=== PATIENT | male | born 1945 | race Caucasian/White ===

== ENCOUNTER 2019-06-22 08:28 | Outpatient (CLI) | payer MEDICARE, OTHER ==
[~2019-06-22] VITALS: Ht 180.3 cm; Wt 81.8 kg
--- NOTE | ~2019-06-22 | HEMODYNAMI ---
PATIENT:ANDI REYES MEDICAL RECORD: [id number] : 41 LOCATION:[facility] ADMISSION DATE: 06/22/19 Generatedon:06/22/201910:28 Patient name: ANDI REYES Patient #: [id number] SSN: [id number] : 1945 Date of study: 06/22/2019 Page: Of Hemodynamic Procedure Report Patient Data Patient Demographics Procedure consent was obtained First Name: ANDI Gender: Male Last Name: ERIC : 1945 Patient #: [id number] Age: 74 year(s) Race: SSN: [id number] Additional ID: [id number] Contact details [address]: [address] [place] [address] State: [place] City: [place] Zip code: [address] Past Medical History Allergies: No known allergies Admission Admission Data Admission Date: 06/22/2019 Admission Time: 8:28 Arrival Date: 06/22/2019 Arrival Time: 0:00 Admit Source: Other Height (in.): 70.87 BSA: 2.02 (m2) Height (cm.): 180 BMI: 25.31 (kg/m2) Weight (lbs.): 180.78 Weight (kg.): 82 Lab Results Lab Result Date: 06/22/2019 Lab Result Time: 0:00 Biochemistry Name Units Result Min Max BUN mg/dl 15 --(--*-)-- 7 18 Creatinine mg/dl 1.2 --(---*)-- 0.6 1.3 CBC Name Units Result Min Max Hematocrit % 44.9 --(*---)-- 42 54 Hemoglobin g/dl 14.5 --(*---)-- 13.5 17.5 Procedure Procedure Types Cath Procedure Diagnostic Procedure Cardioversion External Procedure Description Procedure Date Procedure Date: 06/22/2019 Procedure Start Time: 10:13 Procedure End Time: 10:23 Procedure Staff Name Function Wellington Kennedy MD Performing Physician Solomon Garcia MD Additional personnel Destiny Hamilton RT Monitor Lidia Saucedo RN Nurse Cheli Martinez RT Scrub Indication Atrial fibrillation Procedure Data Procedure Complications No complications Procedure Medications Medication Administration Route Dosage Oxygen etCO2 Nasal cannula 2 l/min Refer to Anesthesia Notes for Sedation Medications Hemodynamics Rest BSA: 2.02 (m2) O2 Consumption: Estimated: 240.82 (ml/min) O2 Consumption indexed : Estimated:119.22 (ml/min/m) Heart Rate: 82 (bpm) Snapshots Pre Cath Intra NCS Post Cath Vital Signs Time Heart Resp SPO2 etCO2 NIBP (mmHg) Rhythm Pain Sedation Rate (ipm) (%) (mmHg) Status Level (bpm) 10:12:15 89 18 92 19.5 152/101(123) NSR 0 (11) 10(A) , No pain 10:17:27 39 13 94 28.6 83/46(61) NSR 0 (11) 9(A) , No pain 10:21:33 38 13 100 37.6 84/44(69) NSR 0 (11) 9(A) , No pain 10:23:54 46 12 100 32.3 89/70(78) NSR 0 (11) 10(A) , No pain 10:27:07 50 13 100 26.3 102/71(88) NSR 0 (11) 9(A) , No pain Medications Time Medication Route Dose Verified Delivered Reason Notes Effective ness by by 10:10:34 Oxygen etCO2 2 Wellington Murillo used for Nasal l/min [facility] Andrew Saucedo RN procedure cannula MD 10:14:52 Refer to Wellington Murillo Anesthesia [facility] Andrew Saucedo RN Notes for MD Sedation Medications Procedure Log Time Note 9:50:18 Indication : Atrial fibrillation 9:50:48 Time tracking: Regular hours (M-F 7:00 - 5:00) 9:51:01 Procedure Status Cardioversion. 9:51:11 Plan of Care:Hemodynamics will remain stable., Cardiac rhythm will remain stable., Comfort level will be maintained., Respiratory function will remain adequate., Patient/ family verbilizes understanding of procedure., Procedure tolerated without complication., Recovers from procedure without complications.. 9:51:15 Lidia Saucedo RN sent for patient. Start room use. 9:55:29 Arrival Date: 06/22/2019 12:00:00 AM 9:55:36 Patient Height : 70.87 inches 9:55:42 Patient Weight : 180.78 lbs 9:56:25 Lab Result : Hemoglobin 14.5 g/dl 9:56:25 Lab Result : Hematocrit 44.9 % 9:56:25 Lab Result : BUN 15 mg/dl 9:56:25 Lab Result : Creatinine 1.2 mg/dl 9:59:18 H&P Date Dictated: 06/17/2019 Within 30 days and on chart.. 9:59:20 Pre-procedure instructions explained to patient. 9:59:20 Pre-op teaching completed and patient verbalized understanding. 9:59:23 Family unavailable. 9:59:27 Patient NPO since Midnight. 9:59:34 Patient allergic to No known allergies 9:59:38 Admit Source: Other 9:59:45 Alarms reviewed by R. N. 9:59:45 Sharps counted by scrub and verified by R.N. 9:59:48 Lab results completed and on chart. 9:59:56 Stress Test: no; N/A ? 10:01:49 Informed consent obtained and on chart 10:02:04 Patient received from Pre/Post Procedure Room to CCL 1 Alert and oriented. Tansferred to table in Supine position. 10:02:06 Warm blankets applied, and samm hugger turned on for patient comfort. 10:02:06 Correct patient and procedure confirmed by team. 10:02:07 ECG and BP/O2 sat monitors applied to patient. 10:02:08 Full Disclosure recording started 10:03:48 Is the patient allergic to Iodine/contrast media? No. 10:03:49 Was the patient premedicated? No 10:03:52 Is patient on blood thinner?Yes 10:03:54 ----Pre-sedation anethsthesia assessment.---- 10:04:00 Previous problem with sedation/anesthesia? No ? 10:04:01 Snore? Yes 10:04:02 Sleep apnea? Unknown 10:04:04 Deviated septum? No 10:04:05 Opens mouth fully? Yes 10:04:06 Sticks out tongue? Yes 10:04:09 Airway obstruction? No ? 10:04:19 Dentures? No ? 10:05:35 ACC The patient was administered the following blood thiners within the last 24 hours: Xarelto 10:06:41 Quick Combo opened to sterile field. 10:06:44 Quick combo pads placed on patients chest and back. 10:10:34 Oxygen 2 l/min etCO2 Nasal cannula was administered by Lidia Saucedo RN; used for procedure; Verbal order read back and verified. 10:11:25 Solomon Garcia MD present and monitoring patient for TIVA. 10:: --------ALL STOP TIME OUT------ :: Final Timeout: patient, procedure, and site verified with staff and physician. All members of the team are in agreement. 10:11:32 Fire Safety Assessment: A--An alcohol-based skin anteseptic being used preoperatively., C--Open oxygen or nitrous oxide is being used., D--An ESU, laser, or fiber-optic light is being used. 10:11:36 Physical assessment completed. ASA score P 2 - A patient with mild systemic disease as per Wellington Kennedy MD. 10:11:41 Sedation plan: TIVA Medication:Propofol 10:12:00 Solomon Garcia MD Creative Services Manager present for DRISS. 10:12:13 Vital chart was started 10:12:17 Baseline sample Acquired. 10:12:21 Rhythm: atrial fibrillation 10:12:35 Procedure started. 10:12:36 DRISS started. 10:13:46 ------Cardioversion------ 10:14:52 Refer to Anesthesia Notes for Sedation Medications was administered by Lidia Saucedo RN; ; Verbal order read back and verified. 10:16:45 Defibrillator synced and charged to 300 Joules. 10:16:49 Shock delivered. 10:18:28 Patient cardioverted to sinus rhythm . 10:19:28 DRISS completed. 10:20:23 Procedure ended.(Physican Out) 10:22:17 Post procedure rhythm: sinus bradycardia 10:22:20 Post procedure instruction explained to patient.Patient verbalizes understanding. 10:22:20 Patient needs reinforcement of post procedure teaching. 10:22:43 Procedure and supply charges have been captured, reviewed, submitted and are correct. 10:22:46 Procedure Complication : No complications 10:22:49 Vital chart was stopped 10:22:54 Operative report dictated upon procedure completion. 10:22:55 See physician's report for complete and final results. 10:22:57 Report given to Pre/Post Procedure Room. 10:23:00 Patient transfered to Pre/Post Procedure Room with Stretcher. 10:23:03 Procedure ended. 10:23:03 Full Disclosure recording stopped 10:23:07 Vital chart was started 10:23:21 End room use (Document Last) 10:23:36 End room use (Document Last) 10::53 End room use (Document Last) 10:28:41 Vital chart was stopped Device Usage Item Manufacture Quantity Catalog Hospital Part Current Minimal Lot# / Name Number Charge Number Stock Stock Seri al# Code [employer] 1 [id number] Combo Signature Audit [place] Stage Time Signature Unsigned Intra-Procedure 06/22/2019 Destiny Hamilton 10:23:36 AM RT(R) Intra-Procedure 06/22/2019 Lidia Saucedo RN 10:23:53 AM Intra-Procedure 06/22/2019 Wellington Vázquez 10:28:40 AM Andrew [facility] [address] [place] [address]
[2019-06-22 08:04] VITALS: BP 119/71; Ht 180.3 cm; Wt 81.8 kg
[2019-06-22 08:17] LABS: ANION GAP 9.1 mmol/L (8-16); CARBON DIOXIDE 28.1 mmol/L (21.0-32.0); CREATININE - SERUM 1.2 mg/dL (0.6-1.3); POTASSIUM - SERUM 4.2 mmol/L (3.5-5.1)
[2019-06-22 08:23] LABS: BASOPHILS 0.5 % (0-2); EOSINOPHILS 2.7 % (0-7); HEMATOCRIT 44.9 % (42.0-54.0); HEMOGLOBIN 14.5 g/dL (13.5-17.5); IMMATURE GRANULOCYTES 0.6 % (0-5); LYMPHOCYTES 15.6 % (15-50); MCH 30.5 pg (26.0-34.0); MCHC 32.3 g/dL (31.0-37.0); MCV 94.3 fL (80.0-100.0); MEAN PLATELET VOLUME 10.5 fL (7.4-10.4); MONOCYTES 8.2 % (2-11); NEUTROPHILS 72.4 % (40-80); PLATELET COUNT 277 10x3/uL (130-400); RBC 4.76 10x6/uL (4.20-6.10); RDW 14.4 % (11.5-14.5)
[2019-06-22 08:27] LABS: INR 3.13 (0.85-1.17); PROTIME 31.6 SECONDS (11.6-15.0)
[~2019-06-22 08:28] MED LIST: ASPIRIN325 MG PO; ATIVAN1 MG PO; BENADRYL25 MG PO; BYSTOLIC10 MG PO; CIALIS2.5 MG PO; CO Q-10100 MG PO; COZAAR100 MG PO; HYDROCHLOROTHIA25 MG PO; LIPITOR40 MG PO; NORVASC5 MG PO; OMEPRAZOLE40 MG PO; PACERONE200 MG PO; POTASSIUM99 M1 PO; VIAGRA100 MG PO; VITAMIN C500 M1 PO; XARELTO20 MG PO; ZYRTEC10 MG PO
--- NOTE | 2019-06-22 10:30 | NUR ---
PT RECEIVED VIA STRETCHER FROM NOVELTY TWISTER TENDER POST SUCCESSFUL CARDIOVERSION. PT AWAKE BUT A LITTLE DROWSY. PT DENIES PAIN OR DISCOMFORT. IV PATENT INFUSING VIA ORDERS TO R ARM. PT PLACED ON CARDIAC MONITORS AND O2 VIA NC AT 2L. HR SB RATE 43, BP 100/67, RR 11, SAT 100. SLIGHT REDNESS ON MIDDLE OF CHEST FROM PROCEDURE. PT DENIES NAUSEA, PO FLUIDS GIVEN PER REQUEST. CALL LIGHT IN REACH
--- NOTE | 2019-06-22 11:00 | NUR ---
PT RESTING COMFORTABLY, MORE AWAKE WATCHING TV. PT DENIES PAIN OR DISCOMFORT. VSS. HR 54, BP 105/63, RR 20, SAT 99. PT TOLERATING PO FLUIDS, OFFERED SANDWICH BUT DECLINES STATES WILL EAT WHEN HE IS DISCHARGED. CALL LIGHT IN REACH
--- NOTE | 2019-06-22 11:20 | NUR ---
DISCHARGE INSTRUCTIONS REVIEWED W PT, HE VERBALIZED UNDERSTANDING. IV REMOVED W CATH INTACT, MONITORS AND O2 REMOVED. PT UP TO DRESS FOR DISCHARGE.
--- NOTE | 2019-06-22 11:35 | NUR ---
PT AMBULATED TO BR, VOIDING W/O DIFFICULITY. PT WAITING ON DR CROCKETT TO COME BY HE WANTED TO ASK HIM A FEW QUESTIONS.
--- NOTE | 2019-06-22 11:50 | NUR ---
DR CROCKETT IN ROOM TALKING W PT. NO NEW ORDERS RECEIVED. 1155 PT DISCHARGED VIA WC TO S/O WAITING IN PRIVATE VEHICLE. PT HAD ALL BELONGINGS AND DISCHARGE PAPERWORK.
--- NOTE | 2019-06-22 15:00 | OP ---
PATIENT NAME: ANDI REYES MEDICAL RECORD: [id number] :41 LOCATION:D[facility] ADMISSION DATE: SURGEON: TOMÁS CROCKETT MD DATE OF OPERATION: 06/22/2019 PROCEDURE: Cardioversion. INDICATION: Atrial fibrillation. DESCRIPTION OF PROCEDURE: After general sedation via TIVA via anesthesia, single synchronized shock at 200 joules was successful in restoring atrial fibrillation to normal sinus rhythm. IMPRESSION: Successful cardioversion. COMPLICATIONS: None. ESTIMATED BLOOD LOSS: Minimal. TRANSINT:[id number] Voice Confirmation ID: [id number] DOCUMENT ID: [id number] TOMÁS CROCKETT MD at 1500 CC: [id number] DICTATION DATE: 06/22/19 1026 SELF PAY SPECIALIST: 06/22/19 1329 DEP CLI 06/22/19 [id number] [place] [address]
== END 2019-06-22 11:55 | disposition home or self-care (01) ==
LOC: D.CATH 08:28
PROVIDERS: ATTEND Internal Medicine Interventional Cardiology
DX: I48.91 Unspecified atrial fibrillation (principal); I10 Essential (primary) hypertension; E78.5 Hyperlipidemia, unspecified; I25.10 Atherosclerotic heart disease of native coronary artery without angina pectoris